=== PATIENT | male | born 1960 | race Caucasian/White ===

== ENCOUNTER → 2016-04-25 | Outpatient (CLI) | payer BC ==
[~2016-04-25] MED LIST: ALBU8.5H INH; LACT1CAP73 PO; MUPI22OI2 TOP; OMEP40CA PO; SULF1TAB42 PO
--- NOTE | 2016-04-25 12:11 | DI ---
Indication: ITS.REASON: M25.572 PAIN IN LEFT ANKLE AND JOINTS OF LEFT FOOT PROCEDURE: ANKLE LEFT 3 VIEW: Encounter: Initial Comparison: None Findings: There is no acute fracture, dislocation or malalignment identified. Incidental note is made of an os supra naviculare. Mild degenerative change at the talonavicular joint. Small calcaneal spurs. Impression: No acute osseous abnormality. .
== END ==
LOC: IMA 11:16
PROVIDERS: ATTEND Family Medicine
DX: M19.072 Primary osteoarthritis, left ankle and foot (principal); M77.32 Calcaneal spur, left foot; M25.572 Pain in left ankle and joints of left foot